=== PATIENT | female | born 1960 | race Caucasian/White ===

== ENCOUNTER 2018-11-24 01:32 | Inpatient (IN) | payer OTHER ==
[2018-11-09 14:57] LABS: INR 1.31
[2018-11-10] MEDS: FAMOTIDINE 20 MG TAB PO ONE ×2 (09:30→10:40)
[2018-11-10] MEDS: NORMOSOL R SOLN(*) 1000 ML BAG 1,000 ML IV PRN ×2 (09:30→10:40)
[2018-11-10] MEDS: LIDOCAINE/SOD BICARB 8.4% SYR ID ONE ×2 (09:30→10:37)
[2018-11-10] MEDS: CELECOXIB 200 MG CAP PO ONE ×2 (09:30→10:40)
[2018-11-10] MEDS: PREGABALIN 150 MG CAPSULE PO ONE ×2 (09:30→10:40)
[2018-11-10] MEDS: ACETAMINOPHEN 500 MG TAB PO ONE ×2 (09:32→10:40)
--- NOTE | 2018-11-20 08:55 | NUR ---
PAT CALL WITH TIMES AND INSTRUCTIONS: NO CHANGE IN HX FROM PREVIOUS PAT CALL. PREOP INSTRUCTIONS AND ARRIVAL TIMES DISCUSSED WITH PT, ASKED PT TO WRITE INSTRUCTIONS DOWN, PT THEN READ BACK WRITTEN INSTRUCTIONS, PT HAD CORRECT PREOP INSTRUCTIONS WRITTEN DOWN WHEN READ BACK. ALSO STATED UNDERSTANDING, AND REPORTED HAD WRITTEN DOWN INSTRUCTIONS FOR PREOP WELL. BOTH STATED UNDERSTANDING.
[2018-11-23 15:56] LABS: INR 1.03
[~2018-11-24] VITALS: Ht 154.9 cm; Wt 115.7 kg
[2018-11-24] VITALS (16 sets, daily range): BP systolic 71–155; BP diastolic 50–106
[~2018-11-24 01:32] MED LIST: ALBU8.5H IH; APIX5TAB PO; BACITRACIN 50000 UNIT/VIAL 100,000 UNIT in NS 0.9% 3000 ML IRRIGATION BAG 3,000 ML IR ONE; DILT-106 PO; METF-450 PO; METO25TA93 PO; MIDAZOLAM 2 MG/2 ML VIAL IVP PRN; ROPIVACAINE/EPI/CLONIDINE/KET 50 ML SYRINGE INJ ONE; TORS100T22 PO; ceFAZolin(*) 2GM/D5W 50ML 50 ML IVPB ONE
[2018-11-24] MEDS ORDERED: METOCLOPRAMIDE 10 MG/2 ML SDV ONE (08:39)
[2018-11-24] MEDS ORDERED: PROPOFOL EMUL(*) 10MG/ML 20 ML 20 ML ONE (08:39)
[2018-11-24] MEDS ORDERED: ONDANSETRON 4 MG/2 ML VIAL ONE (08:39)
[2018-11-24] MEDS ORDERED: DEXAMETHASONE SOD PHOS 10MG/ML ONE (08:39)
[2018-11-24] MEDS ORDERED: LIDOCAINE MPF 1% 5 ML VIAL ONE (08:39)
[2018-11-24] MEDS ORDERED: DEXAMETHASONE SOD 4 MG/ML VIAL ONE (08:40)
[2018-11-24] MEDS ORDERED: fentaNYL CITR 100 MCG/2 ML AMP ONE (08:41)
[2018-11-24] MEDS ORDERED: NORMOSOL R SOLN(*) 1000 ML BAG 1,000 ML IV PRN (11:30)
[2018-11-24] MEDS ORDERED: PREGABALIN 150 MG CAPSULE PO ONE (11:30)
[2018-11-24] MEDS ORDERED: MIDAZOLAM 2 MG/2 ML VIAL IVP PRN (11:30)
[2018-11-24] MEDS ORDERED: FAMOTIDINE 20 MG TAB PO ONE (11:30)
[2018-11-24] MEDS ORDERED: ACETAMINOPHEN 500 MG TAB PO ONE (11:30)
[2018-11-24] MEDS ORDERED: BACITRACIN 50000 UNIT/VIAL 100,000 UNIT in NS 0.9% 3000 ML IRRIGATION BAG 3,000 ML IR ONE (11:30)
[2018-11-24] MEDS ORDERED: ROPIVACAINE/EPI/CLONIDINE/KET 50 ML SYRINGE INJ ONE (11:30)
[2018-11-24] MEDS ORDERED: ceFAZolin(*) 2GM/D5W 50ML 50 ML IVPB ONE (11:30)
[2018-11-24] MEDS ORDERED: LIDOCAINE/SOD BICARB 8.4% SYR ID ONE (11:30)
[2018-11-24] MEDS ORDERED: CELECOXIB 200 MG CAP PO ONE (11:30)
[2018-11-24] MEDS ORDERED: PHENYLEPHRINE 10 MG/1 ML VIAL ONE (12:15)
[2018-11-24] MEDS ORDERED: NS(*) 0.9% 250 ML BAG 250 ML ONE (12:25)
[2018-11-24] MEDS ORDERED: MAGNESIUM HYDROXIDE* 30ML UDCP PO PRN (14:10)
[2018-11-24] MEDS ORDERED: PROMETHAZINE 25 MG/ML 1 ML AMP IVP PRN (14:10)
[2018-11-24] MEDS ORDERED: FLUSH 10 ML SYR IVP PRN (14:10)
[2018-11-24] MEDS ORDERED: diphenhydrAMINE 50 MG/ML VIAL IVP PRN (14:10)
[2018-11-24] MEDS ORDERED: LR 1000 ML BAG 1000 ML IV PRN (14:10)
[2018-11-24] MEDS ORDERED: HYDROmorphone HCL 2 MG/ML SDV IVP PRN (14:10)
[2018-11-24] MEDS ORDERED: BISACODYL 10 MG SUPP PR PRN (14:10)
[2018-11-24] MEDS ORDERED: diphenhydrAMINE 25 MG CAP PO PRN (14:10)
[2018-11-24] MEDS ORDERED: MAGNESIUM CITRATE 300 ML BTL PO PRN (14:10)
[2018-11-24] MEDS ORDERED: ZOLPIDEM TARTRATE 5 MG TAB PO PRN (14:10)
[2018-11-24] MEDS ORDERED: ONDANSETRON 4 MG/2 ML VIAL IVP PRN (14:10)
--- NOTE | 2018-11-24 14:42 | OPERATIVE REPORT 1 ---
EVENT DATE: November 24, 2018 SURGEON: Christiano Thurman MD ANESTHESIOLOGIST: Dante Dick MD ANESTHESIA: General plus a spinal. CIRCUS SUPERVISOR: ANDRAE Richter PREOPERATIVE DIAGNOSIS Left knee osteoarthritis. POSTOPERATIVE DIAGNOSIS Left knee osteoarthritis. PROCEDURE PERFORMED Left total knee arthroplasty. This case deserves a modifier 22 secondarily due to the fact that it took about time and a half of the surgeon time and effort according to a standard total knee as she had quite a bit of subluxation of her femur on her tibia and therefore needed stem components and also release of tissue which took quite a bit more time and quite a bit more effort in addition to a standard total knee replacement. FINDINGS The patient had a significant amount of arthritic changes associated with her knee and the subluxation of the femur on the tibial, but otherwise was amenable for a total knee replacement and with the stem component it was very straight. ESTIMATED BLOOD LOSS About 200 mL. DRAINS None. SPECIMENS None. COMPLICATIONS None. TOURNIQUET TIME 14 minutes which was only up during cementation. IMPLANTS USED [employer] size 4 femur with a size 4 tibial platform with a short stem and a 4 x 5 mm poly and then a 29 anatomic patella. INDICATIONS AND HISTORY This patient is a 58-year-old female that presented to my clinic for evaluation of left knee pain and irritation going on for some time. She continued to have pain and irritation despite conservative management and so therefore she wanted to go ahead with a total knee arthroplasty. She understood that she may have problems and issues associated with it as she has not been very mobile and has not walked on it for quite a while. She understands that it may continue to give her trouble and issues associated with it and may continue to give her long-term problems and that there was no guarantee that it made her better. We went over the risks and benefits associated with this and informed consent was obtained at the last clinic visit. DESCRIPTION OF PROCEDURE As the patient was brought in the operating room, she and the procedure were both verified. She was given a spinal by Anesthesia and then placed supine on the operative table and induced and intubated by Anesthesia. The left lower extremity was then prepped and draped in the usual fashion. A timeout was observed verifying the correct patient and procedure. The standard incision was made over the anterior aspect of the knee. It was taken through the skin and subcutaneous tissue until I got down to the medial parapatellar approach. Once on the medial parapatellar approach, I was then able to open this up and then gain access to the knee itself. Once I gained access to the knee, I removed the ACL and the majority of the PCL. I put it up into a high-flexed position and then was able to take a little rongeur in order to get to the intramedullary canal. I then drilled the intramedullary and then used the intramedullary guide from the [employer] system in order to get the 5-and-9 cutting block down to the distal femur. Once I cut the distal femur, I then put on the sizing block. It sized to just under 4 but will use the 4 secondarily due to the patient's weight and to try and get as much distribution of forces as is possible. Once I did this, I then put on the four-in-one cutting block for the 4. I was able to cut without any difficulty including the chamfer cuts and then put on the notch cutting block. I was able to cut the notch without any issues. Once we were able to do this, I then removed a significant amount of osteophytes and debris from the back portion of the knee which made it amenable for better straightening and flexion associated with it. I then turned attention to the tibia where I was able to sublux the tibia forward, then remove the rest of the PCL. I then removed the rest of the medial and lateral meniscus, what was left of these and there were subluxed off to the side and extruded out of the joint. I then drilled the intramedullary and then used the intramedullary guide once again out of the [employer] system to drill straight down to the intramedullary area. I then used the standard cutting size to cut the minimal amount off the medial side. Once we were able to cut the minimal off the medial side, I then cut the proximal tibia without any difficulty. I then removed the pins and then also removed some osteophytes off the posterior aspect of the tibia and just a little bit more off the posterior aspect of the femur. I then had good access associated with this. We then prepped the tibia in the standard fashion by putting on the standard cutting block, but then I utilized the stem components secondarily due to the subluxation and also to the patient's weight. We were then able to drill down into this area and put the shortest stem, 30 mm stem in. I then also performed a little bit of a release on the lateral side in order to release some of the soft tissues, and then made sure that the medial side did not accordion when we put in the final spacer blocks. This was then followed by placement of the trial components and then the trial poly. The trial poly with the 5 worked out well and so therefore this was the components chosen. I then everted the patella and cut the patella using the 7.5 mm krysta and then trialed it to a 29. I drilled the holes and then trialed all of the components together. Everything tracked well. There were no signs of problems. She was a little bit tight on the lateral side and posteriorly. We did release a little bit more of this and then trialed again and she had good extension and flexion associated with this afterwards. We then irrigated with copious amounts of saline and then also used Irrisept which we had throughout the case. We removed all of the components and irrigated again. We put a bony block into the intramedullary canal of the femur and then cemented in the components without any difficulty after inflation of the tourniquet. We then deflated the tourniquet once the components were cemented in. I put in the joint cocktail for pain relief associated with it and then closed the parapatellar approach with a #2 Stratafix, this was followed by a 2-0 Vicryl in the soft tissue in the adipose layer and then we closed the skin with a 2-0 Stratafix, followed by a 4-0 Monocryl and then a Bioclusive dressing. The leg was then wrapped up. The patient was awakened and extubated and transferred to the PACU in stable condition where she will be admitted overnight. BERNABE
[2018-11-24] MEDS ORDERED: ALBUTEROL 8 GM INHALER INH PRN (16:25)
--- NOTE | 2018-11-24 16:34 | Hospitalist Consultation ---
History of Present Illness Requesting Physician Dr. Thurman Reason for Consult Medical Management Chief Complaint s/p left knee replacement History of Present Illness She was admitted s/p left knee replacement. It is reported the surgery went well and without complication. History Problems: (1) Hypertension Status: Chronic (2) Type 2 diabetes mellitus Status: Chronic (3) COPD (chronic obstructive pulmonary disease) Status: Chronic (4) Atrial fibrillation Status: Chronic Home Meds Reported Medications Albuterol Sulfate 90 Mcg/Act (PROAIR HFA 90 MCG/ACT) 8.5 Gm Hfa.aer.ad, 2 PUFF IH Q4-6H PRN for WHEEZING, INHALER 11/05/18 Metformin Hcl (METFORMIN HCL) 500 Mg Tablet, 1 TAB PO QPM, TAB 11/05/18 Metoprolol Tartrate (METOPROLOL TARTRATE) 25 Mg Tablet, 50 MG PO BID, TAB 11/05/18 Torsemide (TORSEMIDE) 100 Mg Tablet, 100 MG PO DAILY 11/05/18 Diltiazem Hcl (CARTIA XT) 240 Mg Cap.er.24h, 240 MG PO DAILY 11/05/18 Apixaban (ELIQUIS) 5 Mg Tablet, 5 MG PO BID 11/05/18 Allergies: Coded Allergies: No Known Drug Allergies (Unverified , 11/04/18) Patient History: FH: [place] (myocardial infarction) MOTHER, Hx Smoking: Yes (08/03/2016 QUIT, 10-15 CIGS X 45 YRS) Smoking Status: Former Smoker Caffeine Intake: Coffee Caffeine/Cups Per Day: 1 CCD OCC Hx Alcohol Use: No Hx Substance Use Disorder: No Social Drug Use: Never History of IV Drug Use: No Review of Systems All Systems Reviewed/Normal: Yes, Except as Noted Exam Vital Signs Vital Signs Date Time Temp Pulse Resp B/P (MAP) Pulse Ox O2 Delivery O2 Flow Rate FiO2 11/24/18 15:53 97.7 83 18 155/94 (114) 94 Nasal Cannula 2.0 General Appearance: Alert, Awake, No Acute Distress, Afebrile Neuro: No Gross deficits Cardiovascular: Other (irregular heart rhythm) Respiratory: No Respiratory Distress, Clear to Auscultation GI: Abd Soft and Non-Tender Psych: Alert & Oriented X3, Appropriate Mood & Affect Assessment and Plan Problems: (1) Status post left knee replacement Status: Acute Assessment & Plan: Followed by Dr. Thurman. She will be placed on Eliquis starting tomorrow. (2) Type 2 diabetes mellitus Status: Chronic Assessment & Plan: Continue chronic Metformin (starting tomorrow). She will also be placed on AC/HS blood glucose monitoring and SS insulin #1. (3) Hypertension Status: Chronic Assessment & Plan: Continue chronic Metoprolol with hold parameters. (4) Atrial fibrillation Status: Chronic Assessment & Plan: Continue chronic Diltiazem with hold parameters and Eliquis. She is in afib now, which is rate controlled. (5) COPD (chronic obstructive pulmonary disease) Status: Chronic Assessment & Plan: Continue chronic albuterol inhaler as needed. Venous Thromboembolism Antithrombotics Is Pt On Any Antithrombotics?: Yes Problem Qualifiers (1) Hypertension: Hypertension type: essential hypertension Qualified Codes: I10 - Essential (primary) hypertension LYLA LADD November 24, 2018 16:34
--- NOTE | 2018-11-24 17:01 | RADIOLOGY IMAGING REPORT ---
FACILITY: [facility] PATIENT NAME: Maxine Olivas : 1960 MR: [id number] V: [id number] EXAM DATE: ORDERING PHYSICIAN: NESS JIMENEZ TECHNOLOGIST: Location: [facility] Patient: Maxine Olivas : 1960 Visit/Account:[id number] Date of Sevice: 11/24/2018 KNEE LIMITED LEFT Indication: Pain Comparison: Arthroplasty placement. Findings: 2 views left knee were obtained. Frontal and lateral views are obtained of the left knee. A left total knee arthroplasty with patellar resurfacing has been placed. Components project in appro priate alignment. There is gas within the operative bed and within the joint space. No periprosthetic fracture. IMPRESSION: 1. Left total knee arthroplasty in appropriate alignment. Report Dictated By: Lito Stanton at 11/24/2018 4:46 PM Report E-Signed By: Lito Stanton at 11/24/2018 4:47 PM WSN:[id number]
[2018-11-24] MEDS: oxyCODON/ACET (*)5/325MG (CII) 1 TAB TAB PO PRN ×2 (17:47→22:00)
--- NOTE | 2018-11-24 19:02 | NUR ---
Physical Therapy Impression PT eval completed with discussion with pt and CG regarding goals necessary to access home safely. Pt requires min assist to transfer supine to sit at edge of bed and Min assist to maneuver walker with pivot transfer to bedside commode. Pt notes that she is concerned regarding stairs to access her home. At current level of function, PT recommends short-term subacute rehab to safely transition back to her prior level of function with 7 stairs with rail on L) to ascend to her bathroom and bedroom of split level home. Physical Therapy Goals 1. Pt to be modified indep with bed mobility and sup<>sit trnsfrs 2. Pt to be modified indep with sit to/from stand transfers 3. Pt to be SBA/CGA for ambulation x 150' with least restrictive device. 4. Pt to SBA/CGA for up/down 8 steps with rail and least restrictive device. Patient's Goals Addendum: 11/26/18 at 0939 by IBRAHIMA SILVA PT Pt's prior level of function for home environment required her to be able to negotiate 4 steps with rail on L) to access a walkway to her home, followed by a higher 10" step into front door. Pt utilized a cane for this mobility and had SBA from her to leave the home. Pt also has a split level home, which requires pt to negotiate up 7 steps with rail on L) utilized in addition to SPC, in order to access shower/bathroom and bedroom. Pt's spouse did previously assist for safety during showering, however, due to his own medical concerns he is not safely able to assist with this activity at this time. Pt's spouse also assisted with some pericare after BM or, pt indicates that she would often shower after BM for ease of hygiene. Shortly before surgery, when pain was increased, pt would occasionally sleep in her recliner on main level of home, to avoid doing stairs, however, no toilet is available on the main level. In order for pt to return home safely, she will need to complete stairs with SBA/CGA and rail/SPC. Pt's spouse will be unable to assist with lifting LE or bathing initially due to his own UE injury. Pt's spouse does assist with all IADL's such as grocery shopping, cooking and house/yard work. Pt was Modified indep with basic pericare after urination, dressing and household mobility.
[2018-11-24] MEDS: ceFAZolin(*) 2GM/D5W 50ML 50 ML IVPB SCH (20:42)
[2018-11-24] MEDS: INSULIN HUM LISPRO 100 UN/ML 3 ML VIAL SUBQ PRN (20:43)
[2018-11-24] MEDS ORDERED: METOPROLOL TART 50 MG TAB PO SCH (21:00)
[2018-11-24] MEDS ORDERED: METOPROLOL TART 50 MG TAB PO ONE (22:50)
[2018-11-25] VITALS: BP 106/50
[2018-11-25 03:26] VITALS: BP 97/80
[2018-11-25] MEDS: oxyCODON/ACET (*)5/325MG (CII) 1 TAB TAB PO PRN ×4 (03:31→19:59)
[2018-11-25] MEDS: ceFAZolin(*) 2GM/D5W 50ML 50 ML IVPB SCH ×2 (03:31→12:38)
[2018-11-25 07:41] VITALS: BP 100/72
[2018-11-25] MEDS: APIXABAN 2.5 MG TABLET PO SCH ×2 (08:52→21:43)
[2018-11-25] MEDS: METOPROLOL TART 50 MG TAB PO SCH ×2 (08:53→21:00)
[2018-11-25] MEDS ORDERED: DILTIAZEM CD 120 MG CAPCR PO ONE (09:00)
[2018-11-25] MEDS ORDERED: METOPROLOL TART 50 MG TAB PO SCH (09:00)
[2018-11-25] MEDS ORDERED: DILTIAZEM CD 120 MG CAPCR PO SCH (09:00)
--- NOTE | 2018-11-25 09:03 | Hospitalist Progress Note ---
Subjective Progress Notes Subjective She was admitted s/p knee replacement. She has no complaints this morning. She continues to be in atrial fibrillation. She has no symptoms of it. Patient Complains of: Cardiovascular: No: Chest Pain Respiratory: No: Shortness of Breath Physical Exam Vital Signs Date Time Temp Pulse Resp B/P (MAP) Pulse Ox O2 Delivery O2 Flow Rate FiO2 11/25/18 07:41 98.9 122 16 100/72 (81) Nasal Cannula 1.0 11/25/18 03:26 93 Intake and Output 11/25/18 07:00 Intake Total 2150 ml Balance 2150 ml Intake Oral 500 ml IV Total 1650 ml # Voids 3 General Appearance: Alert, Awake, No Acute Distress, Afebrile Neuro: No Gross deficits Cardiovascular: Other (irregular tachycardia rhythm noted) Respiratory: No Respiratory Distress, Clear to Auscultation GI: Soft and Non-Tender Psych: Alert & Oriented X3, Appropriate Mood & Affect Result Diagram: 11/25/18 0636 Assessment and Plan Problems: (1) Status post left knee replacement Status: Acute Assessment & Plan: Followed by Dr. Thurman. She will be placed on Eliquis starting tomorrow. (2) Type 2 diabetes mellitus Status: Chronic Assessment & Plan: Continue chronic Metformin. She will also be placed on AC/HS blood glucose monitoring and SS insulin #1. (3) Hypertension Status: Chronic Assessment & Plan: Continue chronic Metoprolol with hold parameters. (4) Atrial fibrillation Status: Chronic Assessment & Plan: Continue chronic Diltiazem with hold parameters and Eliquis. She is in afib now, which is rate controlled. (5) COPD (chronic obstructive pulmonary disease) Status: Chronic Assessment & Plan: Continue chronic albuterol inhaler as needed. Exam Sepsis Risk: No Definite Risk Problem Qualifiers (1) Hypertension: Hypertension type: essential hypertension Qualified Codes: I10 - Essential (primary) hypertension LYLA LADDP November 25, 2018 09:03
[2018-11-25 11:13] VITALS: BP 105/58
[2018-11-25] MEDS: INSULIN HUM LISPRO 100 UN/ML 3 ML VIAL SUBQ PRN ×2 (11:52→17:14)
--- NOTE | 2018-11-25 12:32 | NUR ---
Physical Therapy Impression Pt demonstrated SBA for supine>sit with head of bed elevated and use of bed rail. Pt able to stand from the bed and the toilet with CGA. Pt tolerated ambulating 50' with RW and CGA with mild SOB at end of bout. SO2 84% on 1L with increased noted with deep breathing. Noted HR max of 160s with typical HR from 120s-130s. Nursing and FAMILY DINNER SERVICE SPECIALIST/Hospitalist aware. Recommend short-term subacute rehab as Pt would need to be fully independent with functional mobility and ADLs as her caregiver/ is unable to assist at this time due to his own medical limitations. Physical Therapy Goals 1. Pt to be modified indep with bed mobility and sup<>sit trnsfrs 2. Pt to be modified indep with sit to/from stand transfers 3. Pt to be SBA/CGA for ambulation x 150' with least restrictive device. 4. Pt to SBA/CGA for up/down 8 steps with rail and least restrictive device. Patient's Goals
[2018-11-25 14:48] VITALS: BP 100/79
--- NOTE | 2018-11-25 16:42 | NUR ---
Physical Therapy Impression Pt showed imporved tolerance to ambulation and was able to negotiate 1 stair without significant difficulty. Pt Deidre for bed mobility. Assistance provided to help pull up into sitting, Pt used her own cane to push self up and get surgical leg into bed to return to supine. Pt xfered from sit<>supine w/ CGAx1. Pt ambulated 100 ft. w/ CGAx1 and use of RW/ O2. Pt ascend/descend 1 stair w/ handheld assist and use of left railing. Pt reported no change in pain during stair negotiation. Verbal cues provided for foot sequencing. Pt would benefit from further skilled PT care to improve strength/mobility to functional levels. Pt was left supine in bed w/ CPM on, ice, call light in reach, and O2 on. Rec short term rehab at discharge. Physical Therapy Goals 1. Pt to be modified indep with bed mobility and sup<>sit trnsfrs 2. Pt to be modified indep with sit to/from stand transfers 3. Pt to be SBA/CGA for ambulation x 150' with least restrictive device. 4. Pt to SBA/CGA for up/down 8 steps with rail and least restrictive device. Patient's Goals
--- NOTE | 2018-11-25 16:43 | NUR ---
This Physical Therapist or Aspnet Developer was present for the entire physical therapy session directing the services, making the skilled judgement, and was not engaged in treating another patient or doing another task at the same time as the treatment session. Addendum: 11/25/18 at 1643 by JOSE WILSON PT Amended: Links added.
[2018-11-25] MEDS ORDERED: metFORMIN HCL 500 MG TAB PO SCH (17:00)
[2018-11-25 19:55] VITALS: BP 99/75
[2018-11-26 02:59] VITALS: BP 121/99
[2018-11-26] MEDS: oxyCODON/ACET (*)5/325MG (CII) 1 TAB TAB PO PRN ×2 (03:18→09:43)
[2018-11-26 06:52] VITALS: BP 104/74
--- NOTE | 2018-11-26 08:57 | Hospitalist Progress Note ---
Subjective Progress Notes Subjective She was admitted s/p knee replacement. She has no complaints this morning. She had no acute events overnight. Patient Complains of: Cardiovascular: No: Chest Pain Respiratory: No: Shortness of Breath Physical Exam Vital Signs Date Time Temp Pulse Resp B/P (MAP) Pulse Ox O2 Delivery O2 Flow Rate FiO2 11/26/18 06:52 98.0 111 20 104/74 (84) 96 Nasal Cannula 2.0 Intake and Output 11/26/18 01:00 Intake Total 530 ml Balance 530 ml Intake Oral 480 ml IV Total 50 ml # Voids 5 General Appearance: Alert, Awake, No Acute Distress, Afebrile Neuro: No Gross deficits Cardiovascular: Other (irregular tachycardic rhythm) Respiratory: No Respiratory Distress, Clear to Auscultation Psych: Alert & Oriented X3, Appropriate Mood & Affect Result Diagram: 11/26/18 0521 Assessment and Plan Problems: (1) Status post left knee replacement Status: Acute Assessment & Plan: Followed by Dr. Thurman. She will be placed on Eliquis starting 11/25 (2) Type 2 diabetes mellitus Status: Chronic Assessment & Plan: Continue chronic Metformin. She will also be placed on AC/HS blood glucose monitoring and SS insulin #1. (3) Hypertension Status: Chronic Assessment & Plan: Continue chronic Metoprolol with hold parameters. (4) Atrial fibrillation Status: Chronic Assessment & Plan: Continue chronic Diltiazem with hold parameters and Eliquis. She has been in afib post-operatively, which is rate controlled. (5) COPD (chronic obstructive pulmonary disease) Status: Chronic Assessment & Plan: Continue chronic albuterol inhaler as needed. Exam Sepsis Risk: No Definite Risk Problem Qualifiers (1) Hypertension: Hypertension type: essential hypertension Qualified Codes: I10 - Essential (p rimary) hypertension LYLA LADDP November 26, 2018 08:57
[2018-11-26] MEDS ORDERED: DILTIAZEM CD 120 MG CAPCR PO SCH ×2 (09:00)
[2018-11-26] MEDS ORDERED: METOPROLOL TART 50 MG TAB PO SCH (09:00)
[2018-11-26] MEDS: APIXABAN 2.5 MG TABLET PO SCH (09:31)
--- NOTE | 2018-11-26 11:10 | NUR ---
Physical Therapy Impression Pt showed improvements in bed mobility and was able to negotiate 3 sets of stairs without signifcant difficulty. Pt SBA for bed mobility, needed encouragement to perform on own. Pt used bed rail for supine>sit and personal cane to assist w/ sit to supine transfer. Pt performed xfers from EOB and wheelchair w/ CGAx1 and use of RW. Pt ambulated 30 ft. w/ RW, O2 and CGAx1. Ambulation was not continuous, between bed/wheelchair and stairs/wheelchair. Pt was brought up to therapy gym using a wheelchair. Pt ascended/descended 8 regular sized stairs and 6 smaller stairs. Pt used both railings, CGAx1, and verbal cueing for foot sequencing. Pt tolerated stairs without signifcant difficulty and brought up doing more than originally anticipated. After stair training, spO2 was 90% and HR was 180. Pt asymptomatic with elevated heart rate. After a short break, HR quickly went down to 123. Pt was left in bed with O2 on and /other staff present. Pt safe for discharge, recommend home health as Pt demonstrated significant improvement this AM compared to yesterday's PT sessions. Physical Therapy Goals 1. Pt to be modified indep with bed mobility and sup<>sit trnsfrs 2. Pt to be modified indep with sit to/from stand transfers 3. Pt to be SBA/CGA for ambulation x 150' with least restrictive device. 4. Pt to SBA/CGA for up/down 8 steps with rail and least restrictive device. Patient's Goals
--- NOTE | 2018-11-26 11:11 | NUR ---
PHYSICAL THERAPY INFORMATION TRANSFER SHEET BED MOBILITY: Standby Assistance TRANSFERS: 1 person assist CGA GAIT: 30 ' with O2 RW and 1 person assist CGA Weightbearing Status: Weight bearing as tolerated STAIRS: 1 with 1 person assist Verbal cues CGA. EXERCISES: Verbalizes Needs: Yes Understands Directions Yes Cooperative: Yes Family Teaching: Yes Physical Therapy Comment:
--- NOTE | 2018-11-26 11:12 | NUR ---
This Physical Therapist or Shearing Machine Operator was present for the entire physical therapy session directing the services, making the skilled judgement, and was not engaged in treating another patient or doing another task at the same time as the treatment session. Addendum: 11/26/18 at 1112 by JOSE WILSON PT Amended: Links added.
[2018-11-26] MEDS ORDERED: OXYC-865 PO (13:00)
--- NOTE | 2018-11-26 14:59 | NUR ---
OCCUPATIONAL THERAPY Dressing Assistance: Max A LB dressing Dressing Aid Required: May benefit from LB AE education Bathing Assistance: N/T with OT Home Assessment: Not Completed Feeding Assistance: Independent Feeding Specialized Equipment: None Toilet Use: Max A zeke-care Verbalizes Needs: Yes Understands Precautions: Yes Cooperative: Yes Family Teaching: Yes Occupational Therapy Comment:
== END 2018-11-26 13:55 | DRG 470 ==
LOC: OR 01:32 → MED 15:45
PROVIDERS: ADMIT Orthopaedic Surgery; ATTEND Orthopaedic Surgery
PROC: 0SRD0J9 Replacement of Left Knee Joint with Synthetic Substitute, Cemented, Open Approach (ICD-10-PCS; principal; 2018-11-24 11:43)
DX: M17.12 Unilateral primary osteoarthritis, left knee (principal); Z68.42 Body mass index [BMI] 45.0-49.9, adult; I48.2 Chronic atrial fibrillation; I10 Essential (primary) hypertension; E11.9 Type 2 diabetes mellitus without complications; J44.9 Chronic obstructive pulmonary disease, unspecified; E66.01 Morbid (severe) obesity due to excess calories; Z87.891 Personal history of nicotine dependence; Z79.84 Long term (current) use of oral hypoglycemic drugs; Z90.49 Acquired absence of other specified parts of digestive tract
CPT/HCPCS: 36415; 36416; 82948; 85014; 85018; 85610; 86850; 86900; 86901; 97161; 97165; C1713; C1776; J0690; J1100; J2001; J2250; J2370; J2405; J2704; J2765; J3010; J7050; J7120